=== PATIENT | female | born 1980 | race Caucasian/White ===

== ENCOUNTER 2017-05-16 12:30 | Inpatient (IN) | payer OTHER ==
[~2017-05-16] VITALS: Ht 149.9 cm; Wt 212.0 kg
[~2017-05-16 12:30] MED LIST: IRON18 MG PO; PHENERGAN25 MG/1 ML PO; PRENATABS FA T1 EACH
== END 2017-06-10 17:16 | DRG 766 ==
LOC: LDR 12:30 → OB/GYN 06-06 16:42 → LDR 06-06 17:07 → SEC-K 06-07 15:12 → OB/GYN 06-07 15:12 → LDR 06-13 12:30
PROVIDERS: Obstetrics & Gynecology
PROC: 3E0P7VZ Introduction of Hormone into Female Reproductive, Via Natural or Artificial Opening (ICD-10-PCS; 2017-06-06)
PROC: 4A1HXCZ Monitoring of Products of Conception, Cardiac Rate, External Approach (ICD-10-PCS; 2017-06-06)
PROC: 4A033R1 Measurement of Arterial Saturation, Peripheral, Percutaneous Approach (ICD-10-PCS; 2017-06-07)
PROC: 10D00Z1 Extraction of Products of Conception, Low, Open Approach (ICD-10-PCS; principal; 2017-06-07 18:00)
DX: O33.9 Maternal care for disproportion, unspecified (principal); Z3A.39 39 weeks gestation of pregnancy; Z37.0 Single live birth

== ENCOUNTER 2017-06-06 13:43 | Outpatient (CLI) | payer OTHER | END 2017-06-06 16:55 | disposition home or self-care (01) | LOC: NST 13:43 | DX: Z34.03 Encounter for supervision of normal first pregnancy, third trimester (principal) ==